=== PATIENT | male | born 1970 | race Caucasian/White ===

== ENCOUNTER 2017-03-06 20:36 | Inpatient (IN) | payer MEDICARE ==
[2017-03-06] MEDS ORDERED: ONDANSETRON 4 MG TAB.RAPDIS PO ONE (20:55)
[2017-03-06] MEDS ORDERED: NORMAL SALINE 1000 ML 1,000 ML IV ONE ×2 (20:56)
--- NOTE | 2017-03-06 21:03 | ER Document Report ---
ED Medical Screen (RME) - General Chief Complaint: High Blood Sugar Stated Complaint: HIGH BLOOD SUGAR,VOMITING Time Seen by Provider: 03/06/17 20:53 Notes: 47 year old male, history of Type I diabetes, comes to the ED for vomiting x 12 since this morning. No fevers, no hematemesis, no abnormal bowel movement. Past medical history of esophagitis as well. Patient was given 34 units of regular insulin this afternoon by . He denies alcohol, he denies any specific areas of abdominal pain. He is visiting from [place]. TRAVEL OUTSIDE OF THE U.S. IN LAST 30 DAYS: No - Related Data Allergies/Adverse Reactions: No Known Allergies Allergy (Unverified 03/06/17 20:48) Past Medical History Renal/ Medical History: Denies: Hx Peritoneal Dialysis Physical Exam - Vital signs Vitals: Temp Pulse Resp BP Pulse Ox 98.4 F 124 H 16 159/97 H 98 03/06/17 20:44 03/06/17 20:44 03/06/17 20:44 03/06/17 20:44 03/06/17 20:44 - General General appearance: Anxious In distress: Severe - patient vomited twice, diaphoretic - Cardiovascular Rhythm: Regular, Tachycardia Heart sounds: Normal auscultation, S1 appreciated, S2 appreciated Course - Re-evaluation Re-evalutation: Patient made level 2/yellow because of suspected diabetic ketoacidosis, tachycardia, vomiting, diaphoresis. - Vital Signs Vital signs: Temp Pulse Resp BP Pulse Ox 98.4 F 124 H 16 159/97 H 98 03/06/17 20:44 03/06/17 20:44 03/06/17 20:44 03/06/17 20:44 03/06/17 20:44
[2017-03-06 21:43] LABS: ABSOLUTE BASOPHILS # (AUTO) 0.2 10^3/uL (0.0-0.2); ABSOLUTE LYMPHOCYTES (AUTO) 0.7 10^3/uL (0.5-4.7); ABSOLUTE MONOCYTES (AUTO) 0.2 10^3/uL (0.1-1.4); ABSOLUTE NEUT (AUTO) 10.2 10^3/uL (1.7-8.2); BASOPHILS % (AUTO) 1.4 % (0-2); EOSINOPHILS % (AUTO) 0.1 % (0-6); LYMPHOCYTES % (AUTO) 5.9 % (13-45); MEAN CORPUSCULAR HEMOGLOBIN 30.8 pg (27.0-33.4); MEAN CORPUSCULAR HGB CONC 31.9 g/dL (32.0-36.0); MEAN CORPUSCULAR VOLUME 96 fl (80-97); MONOCYTES % (AUTO) 1.9 % (3-13); RED BLOOD COUNT 4.87 10^6/uL (4.35-5.55); RED CELL DISTRIBUTION WIDTH 15.3 % (11.5-14.0); SEGMENTED NEUTROPHILS % (AUTO) 90.7 % (42-78); WHITE BLOOD COUNT 11.2 10^3/uL (4.0-10.5)
[2017-03-06 21:45] LABS: VENOUS BLOOD BASE EXCESS -9.9 mmol/L; VENOUS BLOOD HCO3 16.4 mmol/L (20-32); VENOUS BLOOD PCO2 37.3 mmHg (35-63); VENOUS BLOOD PH 7.26 (7.30-7.42)
[2017-03-06] MEDS ORDERED: FAMOTIDINE INJ/PF 20 MG/2 ML SDV IV ONE (22:19)
--- NOTE | 2017-03-06 22:19 | ER Document Report ---
ED GI/ - General Chief Complaint: High Blood Sugar Stated Complaint: HIGH BLOOD SUGAR,VOMITING Time Seen by Provider: 03/06/17 20:53 Notes: The patient is a 47-year-old male, past medical history type 1 diabetes, gastritis, presents with 12 hours of nausea, vomiting and elevated blood sugars to 450 at home. He was given 25 units of Humalog 2 hours prior to arrival to the ER. Patient is complaining of epigastric pain, but has not vomited while in the emergency room. According to his , the patient has difficult to control blood sugars when he will become hypoglycemic overnight and will have elevated blood sugars during the day. He denies chest pain, shortness of breath , fevers, numbness, tingling, back pain, urinary symptoms or hematemesis. TRAVEL OUTSIDE OF THE U.S. IN LAST 30 DAYS: No - Related Data Allergies/Adverse Reactions: No Known Allergies Allergy (Unverified 03/06/17 20:48) Past Medical History - General Information source: Patient, Relative - Social History Smoking Status: Current Every Day Smoker Family History: Reviewed & Not Pertinent Patient has suicidal ideation: No Patient has homicidal ideation: No Renal/ Medical History: Denies: Hx Peritoneal Dialysis Review of Systems - Review of Systems Notes: REVIEW OF SYSTEMS: CONSTITUTIONAL: -fevers, -chills EENT: -eye pain, -difficulty swallowing, -nasal congestion CARDIOVASCULAR: -chest pain, -syncope. RESPIRATORY: -cough, -SOB GASTROINTESTINAL: +epigastric abdominal pain, +nausea, +vomiting, -diarrhea GENITOURINARY: -dysuria, -hematuria MUSCULOSKELETAL: -back pain, -neck pain SKIN: -rash or skin lesions. HEMATOLOGIC: -easy bruising or bleeding. LYMPHATIC: -swollen, enlarged glands. NEUROLOGICAL: -altered mental status or loss of consciousness, -headache, - neurologic symptoms PSYCHIATRIC: -anxiety, -depression. ALL OTHER SYSTEMS REVIEWED AND NEGATIVE. Physical Exam - Vital signs Vitals: Temp Pulse Resp BP Pulse Ox 98.4 F 124 H 16 159/97 H 98 03/06/17 20:44 03/06/17 20:44 03/06/17 20:44 03/06/17 20:44 03/06/17 20:44 - Notes Notes: PHYSICAL EXAMINATION: GENERAL: Mild distress. Uncomfortable. HEAD: Atraumatic, normocephalic. EYES: Pupils equal round and reactive to light, extraocular movements intact, sclera anicteric, conjunctiva are normal. ENT: nares patent, oropharynx clear without exudates. Moist mucous membranes. NECK: Normal range of motion, supple without lymphadenopathy LUNGS: Breath sounds clear to auscultation bilaterally and equal. No wheezes rales or rhonchi. HEART: Tachycardia, regular rhythm ABDOMEN: Soft, mild epigastric tenderness, normoactive bowel sounds. No guarding, no rebound. No masses appreciated. EXTREMITIES: Normal range of motion, no pitting or edema. No cyanosis. NEUROLOGICAL: Cranial nerves grossly intact. Normal speech. Normal sensory and motor exams. PSYCH: Normal mood, normal affect. SKIN: Warm, Dry, normal turgor, no rashes or lesions noted. Course - Re-evaluation Re-evalutation: Patient with evidence of DKA on labs, including elevated anion gap, acidosis on VBG and ketones in urine. No history of toxic alcohol ingestion or any other medication ingestion to explain elevated anion gap. Patient started on insulin drip. Patient still tachycardic. He only with epigastric pain, which she says is similar to his gastritis. His lipase and LFTs are all normal. Patient's primary care physician is in [place]. He requires admission for further evaluation and treatment of his DKA. 03/07/17 03:[address] Jarrell (Hospitalist) and will admit patient to [facility]. - Vital Signs Vital signs: Temp Pulse Resp BP Pulse Ox 98.4 F 124 H 18 144/88 H 100 03/06/17 20:44 03/06/17 20:44 03/07/17 03:01 03/07/17 03:01 03/07/17 03:01 - Laboratory Result Diagrams: 03/06/17 21:25 03/07/17 02:34 Laboratory results interpreted by me: 03/06/17 03/06/17 03/06/17 20:51 21:25 21:25 WBC 11.2 H MCHC 31.9 L RDW 15.3 H Seg Neutrophils % 90.7 H Lymphocytes % 5.9 L Monocytes % 1.9 L Absolute Neutrophils 10.2 H VBG pH 7.26 L VBG HCO3 16.4 L Chloride Carbon Dioxide Anion Gap Glucose POC Glucose 310 H Alkaline Phosphatase Lipase Urine Protein Urine Glucose (UA) Urine Ketones Urine Blood 03/06/17 03/06/17 03/06/17 22:00 22:00 22:10 WBC MCHC RDW Seg Neutrophils % Lymphocytes % Monocytes % Absolute Neutrophils VBG pH VBG HCO3 Chloride Carbon Dioxide 14 L Anion Gap 23 H Glucose 323 H POC Glucose Alkaline Phosphatase 148 H Lipase < 10.0 L Urine Protein 100 H Urine Glucose (UA) >=500 H Urine Ketones 80 H Urine Blood SMALL H 03/07/17 03/07/17 03/07/17 01:16 02:23 02:34 WBC MCHC RDW Seg Neutrophils % Lymphocytes % Monocytes % Absolute Neutrophils VBG pH VBG HCO3 Chloride 113 H Carbon Dioxide 11 L Anion Gap 20 H Glucose 216 H POC Glucose 300 H 260 H Alkaline Phosphatase Lipase Urine Protein Urine Glucose (UA) Urine Ketones Urine Blood - EKG Interpretation by Fl EKG shows normal: Sinus rhythm, [place], Intervals, QRS Complexes, ST-T Waves Rate: Tachycardia Discharge - Discharge Clinical Impression: DKA (diabetic ketoacidoses) Qualifiers: Diabetes mellitus type: type 1 Diabetes mellitus complication detail: without coma Qualified Code(s): E10.10 - Type 1 diabetes mellitus with ketoacidosis without coma Condition: Serious Disposition: ADMITTED INPATIENT [facility] Unit Admitted: [facility]
[2017-03-06 22:27] LABS: ALANINE AMINOTRANSFERASE 43 U/L (21-72); ALKALINE PHOSPHATASE 148 U/L (38-126); ASPARTATE AMINO TRANSFERASE 29 U/L (17-59); BILIRUBIN,DIRECT 0.4 mg/dL (0.0-0.4); BLOOD UREA NITROGEN 19 mg/dL (7-20); CREATININE RESULT 0.75 mg/dL (0.52-1.25); GLUCOSE 323 mg/dL (75-110); TOTAL PROTEIN 7.8 g/dL (6.3-8.2)
[2017-03-06 22:32] LABS: APPEARANCE,URINE CLEAR; BILIRUBIN,URINE NEGATIVE (NEGATIVE); GLUCOSE, URINE >=500 mg/dL (NEGATIVE); KETONES,URINE 80 mg/dL (NEGATIVE); LEUKOCYTE ESTERASE,URINE NEGATIVE (NEGATIVE); NITRITE,URINE NEGATIVE (NEGATIVE); PROTEIN,URINE 100 mg/dL (NEGATIVE); URINE SPECIFIC GRAVITY 1.026; UROBILINOGEN,URINE NEGATIVE mg/dL (<2.0)
[2017-03-06 22:36] LABS: CARBON DIOXIDE 14 mmol/L (22-30); CHLORIDE 104 mmol/L (98-107); POTASSIUM 4.9 mmol/L (3.6-5.0); SODIUM 142.6 mmol/L (137-145)
[2017-03-06 22:46] LABS: ANION GAP 23 (5-19)
[2017-03-06] MEDS ORDERED: GLUCAGON,HUMAN RECOMB 1 MG INJ IM PRN (23:03)
[2017-03-06] MEDS ORDERED: NORMAL SALINE 100 ML with INSULIN REGULAR, HUMAN 100 UNIT IV PRN ×2 (23:03)
[2017-03-06] MEDS ORDERED: DEXTROSE 40% GEL 15 GM TUBE PO PRN ×2 (23:03)
[2017-03-06] MEDS ORDERED: DEXTROSE 50%-WATER 25 GM/50 ML DISP.SYRIN IV PRN ×2 (23:03)
[2017-03-06] MEDS ORDERED: METOCLOPRAMIDE HCL INJ/PF 10 MG/2 ML SDV IV ONE (23:41)
[2017-03-06] MEDS ORDERED: INSULIN REG, HUMAN 100 UNIT/ML 3 ML VIAL (PYX) IV ONE (23:52)
[2017-03-07] MEDS ORDERED: INSULIN REG, HUMAN 100 UNIT/ML 3 ML VIAL (PYX) ONE (00:01)
[2017-03-07 02:52] LABS: BLOOD UREA NITROGEN 18 mg/dL (7-20); CALCIUM 9.6 mg/dL (8.4-10.2); CARBON DIOXIDE 11 mmol/L (22-30); CHLORIDE 113 mmol/L (98-107); GLUCOSE 216 mg/dL (75-110); POTASSIUM 4.4 mmol/L (3.6-5.0); SODIUM 143.8 mmol/L (137-145)
[2017-03-07 02:57] LABS: ANION GAP 20 (5-19)
[2017-03-07] MEDS ORDERED: DEXTROSE 5%-1/2 NORMAL SALINE 1,000 ML IV ONE (02:57)
[2017-03-07] MEDS ORDERED: GLUCAGON,HUMAN RECOMB 1 MG INJ IM PRN (03:16)
[2017-03-07] MEDS ORDERED: POTASSI CL 20 MEQ/D5-1/2NS 1L 1,000 ML IV PRN ×2 (03:16)
[2017-03-07] MEDS ORDERED: ONDANSETRON HCL INJ/PF 4 MG/2 ML SDV IV PRN ×3 (03:16→10:04)
[2017-03-07] MEDS ORDERED: ACETAMINOPHEN 325 MG TABLET PO PRN (03:16)
[2017-03-07] MEDS ORDERED: DEXTROSE 50%-WATER 25 GM/50 ML DISP.SYRIN IV PRN ×2 (03:16)
[2017-03-07] MEDS ORDERED: DEXTROSE 40% GEL 15 GM TUBE PO PRN ×2 (03:16)
[2017-03-07] MEDS ORDERED: IPRATROPIUM/ALBUTEROL 0.5-2.5 MG/3 ML AMPUL NEB PRN (03:16)
--- NOTE | 2017-03-07 06:03 | PDOC H&P ---
History of Present Illness Admission Date/PCP: 03/07/17 03:21 Patient complains of: Nausea and vomiting History of Present Illness: HEATHER CORLEY is a 47 year old male with a past medical history of migraine headache, gastritis, peripheral neuropathy and type 1 diabetes with recurrent Diabetic ketoacidosis, who is from [facility]. He states glucose has been difficult to control associated with nausea and vomiting 12 prompting him to seek evaluation in the emergency room where he was found to have diabetic ketoacidosis. He is referred to the hospital for admission. Past Medical History Neurological Medical History: Reports: Migraine GI Medical History: Reports: Other - Gastritis Psychiatric Medical History: Reports: Tobacco Dependency Denies: Alcohol Dependency Social History Information Source: Patient Lives with: Spouse/Significant other Smoking Status: Current Every Day Smoker Drugs: Marijuana - Advance Directive Resuscitation Status: Full Code Family History Family History: None Parental Family History Reviewed: Yes Children Family History Reviewed: Yes Sibling(s) Family History Reviewed.: Yes Medication/Allergy Allergies/Adverse Reactions: No Known Allergies Allergy (Unverified 03/06/17 20:48) Review of Systems Constitutional: ABSENT: chills, fever(s), headache(s), weight gain, weight loss Eyes: ABSENT: visual disturbances Ears: ABSENT: hearing changes Cardiovascular: ABSENT: chest pain, dyspnea on exertion, edema, orthropnea, palpitations Respiratory: ABSENT: cough, hemoptysis Gastrointestinal: ABSENT: abdominal pain, constipation, diarrhea, hematemesis, hematochezia, nausea, vomiting Genitourinary: ABSENT: dysuria, hematuria Musculoskeletal: ABSENT: joint swelling Integumentary: ABSENT: rash, wounds Neurological: ABSENT: abnormal gait, abnormal speech, confusion, dizziness, focal weakness, syncope Psychiatric: ABSENT: anxiety, depression, homidical ideation, suicidal ideation Endocrine: ABSENT: cold intolerance, heat intolerance, polydipsia, polyuria Hematologic/Lymphatic: ABSENT: easy bleeding, easy bruising Physical Exam Vital Signs: Temp Pulse Resp BP Pulse Ox 98.4 F 124 H 18 144/88 H 100 03/06/17 20:44 03/06/17 20:44 03/07/17 03:01 03/07/17 03:01 03/07/17 03:01 General appearance: PRESENT: cooperative, disheveled, mild distress, thin Head exam: PRESENT: atraumatic, normocephalic Eye exam: PRESENT: conjunctiva pink, EOMI, PERRLA. ABSENT: scleral icterus Ear exam: PRESENT: normal external ear exam Mouth exam: PRESENT: dry mucosa, tongue midline Neck exam: ABSENT: carotid bruit, JVD, lymphadenopathy, thyromegaly Respiratory exam: PRESENT: clear to auscultation chris. ABSENT: rales, rhonchi, wheezes Cardiovascular exam: PRESENT: RRR. ABSENT: diastolic murmur, rubs, systolic murmur Pulses: PRESENT: normal dorsalis pedis pul Vascular exam: PRESENT: normal capillary refill GI/Abdominal exam: PRESENT: normal bowel sounds, soft. ABSENT: distended, guarding, mass, organolmegaly, rebound, tenderness Extremities exam: PRESENT: full ROM. ABSENT: calf tenderness, clubbing, pedal edema Neurological exam: PRESENT: alert, awake, oriented to person, oriented to place , oriented to time, oriented to situation, CN II-XII grossly intact. ABSENT: motor sensory deficit Psychiatric exam: PRESENT: appropriate affect, normal mood. ABSENT: homicidal ideation, suicidal ideation Skin exam: PRESENT: abrasion - Lateral left ankle abrasion, other - Numerous insect bites throughout Assessment & Plan - Diagnosis (1) DKA (diabetic ketoacidoses) Qualifiers: Diabetes mellitus type: type 1 Diabetes mellitus complication detail: without coma Qualified Code(s): E10.10 - Type 1 diabetes mellitus with ketoacidosis without coma Is this a current diagnosis for this admission?: YesPlan: Diabetic ketoacidosis patient has had some degree of polyuria polydipsia with nausea and uncontrolled hyperglycemia with supporting labs. Patient will receive IV fluids IV insulin serial chemistries every 6 hours for evaluation for electrolyte repletion. Continued evaluation for underlying cause if not found Patient will require diabetic education and consideration of mental health evaluation. (2) Tobacco abuse Is this a current diagnosis for this admission?: YesPlan: Tobacco Dependence patient received tobacco cessation counseling and offered nicotine replacement options - Time Time Spent: 50 to 70 Minutes - Inpatient Certification Medical Necessity: Need Close Monitoring Due to Risk of Patient Decompensation
[2017-03-07 06:43] LABS: URINE BARBITURATES SCREEN NEGATIVE; URINE METHADONE SCREEN NEGATIVE; URINE OPIATES LOW NEGATIVE; URINE PHENCYCLIDINE SCREEN NEGATIVE
[2017-03-07 06:57] LABS: BLOOD UREA NITROGEN 19 mg/dL (7-20); CALCIUM 9.9 mg/dL (8.4-10.2); CHLORIDE 111 mmol/L (98-107); CREATININE RESULT 0.69 mg/dL (0.52-1.25); GLUCOSE 90 mg/dL (75-110); POTASSIUM 4.4 mmol/L (3.6-5.0); SODIUM 145.4 mmol/L (137-145)
[2017-03-07 07:09] LABS: ANION GAP 14 (5-19)
[2017-03-07 07:10] LABS: CARBON DIOXIDE 20 mmol/L (22-30)
[2017-03-07] MEDS: HEPARIN SOD (PORCINE) 5,000 UNIT/ML 1 ML SYRINGE SUBCUT SCH ×3 (08:00→21:52)
[2017-03-07] MEDS ORDERED: NORMAL SALINE 100 ML with INSULIN REGULAR, HUMAN 100 UNIT IV PRN ×2 (09:44)
[2017-03-07] MEDS ORDERED: DIPHENHYDRAMINE HCL 50 MG/ML VIAL IV ONE (09:46)
[2017-03-07] MEDS ORDERED: NORMAL SALINE 1000 ML 1,000 ML IV ONE (09:50)
[2017-03-07] MEDS ORDERED: METOCLOPRAMIDE HCL ORAL SOLN 10 MG/10 ML UDCUP PO ONE (10:00)
[2017-03-07] MEDS ORDERED: LIDOCAINE 2% VISCOUS SOLN 20 ML UDCUP PO ONE (10:00)
[2017-03-07] MEDS ORDERED: KETOROLAC TROMETHAMINE INJ/PF 30 MG/1 ML SDV IV ONE (10:00)
[2017-03-07] MEDS ORDERED: MAG HYDROX/AL HYDROX/SIMETH SUSP 30 ML UDCUP PO ONE (10:00)
[2017-03-07] MEDS ORDERED: INSULIN GLARGINE,HUM.REC.ANLOG 1,000 UNIT/10 ML UNIT SUBCUT SCH (10:00)
[2017-03-07] MEDS ORDERED: LANSOPRAZOLE 30 MG TAB.RAP.DR PO ONE (10:00)
--- NOTE | 2017-03-07 10:46 | EKG REPORT ---
SEVERITY:- BORDERLINE ECG - SINUS TACHYCARDIA PROBABLE LEFT ATRIAL ABNORMALITY : Confirmed by: Cindy Alvarado MD 07-Mar-2017 10:45:36
[2017-03-07 11:12] LABS: ANION GAP 19 (5-19); BLOOD UREA NITROGEN 17 mg/dL (7-20); CALCIUM 9.4 mg/dL (8.4-10.2); CARBON DIOXIDE 15 mmol/L (22-30); CHLORIDE 107 mmol/L (98-107); CREATININE RESULT 0.59 mg/dL (0.52-1.25); GLUCOSE 271 mg/dL (75-110); POTASSIUM 4.9 mmol/L (3.6-5.0); SODIUM 140.6 mmol/L (137-145)
[2017-03-07] MEDS: SERTRALINE HCL 50 MG TABLET PO SCH (12:29)
[2017-03-07] MEDS: LISINOPRIL 5 MG TABLET PO SCH (12:32)
[2017-03-07] MEDS ORDERED: HYDRALAZINE HCL INJ/PF 20 MG/1 ML SDV IV PRN (13:59)
[2017-03-07] MEDS ORDERED: LISINOPRIL 5 MG TABLET PO ONE (13:59)
[2017-03-07] MEDS: NORMAL SALINE 1000 ML 1,000 ML IV PRN ×2 (14:31→18:22)
[2017-03-07] MEDS: PREGABALIN 75 MG CAPSULE PO SCH ×2 (14:31→21:52)
[2017-03-07] MEDS: ONDANSETRON HCL INJ/PF 4 MG/2 ML SDV IV PRN (15:17)
[2017-03-07 15:38] LABS: ANION GAP 13 (5-19); BLOOD UREA NITROGEN 19 mg/dL (7-20); CALCIUM 9.4 mg/dL (8.4-10.2); CARBON DIOXIDE 19 mmol/L (22-30); CHLORIDE 107 mmol/L (98-107); CREATININE RESULT 0.67 mg/dL (0.52-1.25); GLUCOSE 287 mg/dL (75-110); POTASSIUM 4.4 mmol/L (3.6-5.0); SODIUM 139.3 mmol/L (137-145)
[2017-03-07] MEDS: INSULIN LISPRO 100 UNIT/ML 3 ML VIAL SUBCUT PRN (16:28)
[2017-03-07] MEDS: INSULIN GLARGINE,HUM.REC.ANLOG 1,000 UNIT/10 ML UNIT SUBCUT SCH (21:41)
[2017-03-08 04:59] LABS: ABSOLUTE BASOPHILS # (AUTO) 0.1 10^3/uL (0.0-0.2); ABSOLUTE EOSINOPHILS # (AUTO) 0.1 10^3/uL (0.0-0.6); ABSOLUTE LYMPHOCYTES (AUTO) 1.7 10^3/uL (0.5-4.7); ABSOLUTE MONOCYTES (AUTO) 0.5 10^3/uL (0.1-1.4); ABSOLUTE NEUT (AUTO) 6.2 10^3/uL (1.7-8.2); BASOPHILS % (AUTO) 1.1 % (0-2); EOSINOPHILS % (AUTO) 0.8 % (0-6); HEMATOCRIT 35.3 % (37.9-51.0); HGB HCT DIFFERENCE -0.2; LYMPHOCYTES % (AUTO) 19.5 % (13-45); MEAN CORPUSCULAR HEMOGLOBIN 31.4 pg (27.0-33.4); MEAN CORPUSCULAR VOLUME 95 fl (80-97); MONOCYTES % (AUTO) 6.3 % (3-13); RED BLOOD COUNT 3.71 10^6/uL (4.35-5.55); RED CELL DISTRIBUTION WIDTH 15.1 % (11.5-14.0); SEGMENTED NEUTROPHILS % (AUTO) 72.3 % (42-78); WHITE BLOOD COUNT 8.5 10^3/uL (4.0-10.5)
[2017-03-08 05:01] LABS: HEMOGLOBIN 11.7 g/dL (13.5-17.0)
[2017-03-08] MEDS ORDERED: LANSOPRAZOLE 30 MG TAB.RAP.DR PO SCH (06:00)
[2017-03-08] MEDS: PREGABALIN 75 MG CAPSULE PO SCH ×2 (06:14→13:31)
[2017-03-08] MEDS: HEPARIN SOD (PORCINE) 5,000 UNIT/ML 1 ML SYRINGE SUBCUT SCH ×2 (06:14→13:27)
[2017-03-08] MEDS: SERTRALINE HCL 50 MG TABLET PO SCH (09:08)
[2017-03-08] MEDS: INSULIN GLARGINE,HUM.REC.ANLOG 1,000 UNIT/10 ML UNIT SUBCUT SCH (09:08)
[2017-03-08] MEDS: ONDANSETRON HCL INJ/PF 4 MG/2 ML SDV IV PRN (09:08)
[2017-03-08] MEDS: NORMAL SALINE 1000 ML 1,000 ML IV PRN (09:09)
[2017-03-08] MEDS: LISINOPRIL 5 MG TABLET PO SCH (09:12)
[2017-03-08] MEDS ORDERED: METOCLOPRAMIDE HCL INJ/PF 10 MG/2 ML SDV IV ONE (09:26)
[2017-03-08] MEDS ORDERED: KETOROLAC TROMETHAMINE INJ/PF 30 MG/1 ML SDV IV ONE (09:26)
[2017-03-08] MEDS ORDERED: PANTOPRAZOLE SODIUM 40 MG VIAL IV ONE (09:26)
[2017-03-08] MEDS ORDERED: DIPHENHYDRAMINE HCL 50 MG/ML VIAL IV ONE (09:27)
[2017-03-08 11:38] VITALS: BP 133/83
[2017-03-08] MEDS: INSULIN LISPRO 100 UNIT/ML 3 ML VIAL SUBCUT PRN (12:18)
[2017-03-08] MEDS ORDERED: METOCLOPRAMIDE HCL INJ/PF 10 MG/2 ML SDV ONE (13:36)
[2017-03-08] MEDS ORDERED: ONDANSETRON HCL INJ/PF 4 MG/2 ML SDV ONE (13:36)
--- NOTE | 2017-03-08 19:54 | PDOC PROGRESS REPORT ---
Subjective Progress Note for:: 03/07/17 Subjective:: Patient has headache and nausea. Patient denies chest pain, shortness of breath, abdominal pain, rash, diarrhea. Physical Exam Vital Signs: Temp Pulse Resp BP Pulse Ox 98.4 F 124 H 17 141/84 H 100 03/06/17 20:44 03/06/17 20:44 03/07/17 06:01 03/07/17 06:01 03/07/17 06:01 Exam: GENERAL: No acute distress HEENT: Conjunctiva clear, nonicteric, moist mucous membranes, no JVD, midline trachea RESPIRATORY: Clear to auscultation bilaterally, no wheezes, no rhonchi CARDIAC: Regular rate and rhythm, no murmurs/gallops/rubs ABDOMEN: Soft, nondistended, nontender, positive bowel sounds, no rebound, no guarding EXTREMETIES: c/c/e NEUROLOGIC: Alert, oriented to person/place/time, CN's grossly intact, no focal deficits SKIN: No rash, lesion PSYCH: Normal mood, normal affect Results Laboratory Results: 03/07/17 06:22 03/07/17 06:22 Sodium 145.4 H Potassium 4.4 Chloride 111 H Carbon Dioxide 20 L Anion Gap 14 BUN 19 Creatinine 0.69 Est GFR ( Amer) > 60 Est GFR (Non-Af Amer) > 60 Glucose 90 Calcium 9.9 Assessment & Plan - Diagnosis (1) DKA (diabetic ketoacidoses) Qualifiers: Diabetes mellitus type: type 1 Diabetes mellitus complication detail: without coma Qualified Code(s): E10.10 - Type 1 diabetes mellitus with ketoacidosis without coma Is this a current diagnosis for this admission?: YesPlan: Continue ggt and transition as able. Patient takes lantus and ssi at home. Poorly controlled. (2) HTN (hypertension) Is this a current diagnosis for this admission?: YesPlan: resume lisinopril (3) Tobacco abuse Is this a current diagnosis for this admission?: Yes - Time Time Spent with patient: 25-34 minutes Medications reviewed and adjusted accordingly: Yes Anticipated discharge: Home Within: within 48 hours
--- NOTE | 2017-03-08 20:00 | PDOC DISCHARGE SUMMARY ---
General - Admit/Disc Date/PCP Admission Date/Primary Care Provider: 03/07/17 19:36 Discharge Date: 03/08/17 - Discharge Diagnosis (1) DKA (diabetic ketoacidoses) Is this a current diagnosis for this admission?: Yes (2) HTN (hypertension) Is this a current diagnosis for this admission?: Yes (3) Tobacco abuse Is this a current diagnosis for this admission?: Yes (4) Gastroparesis due to DM Is this a current diagnosis for this admission?: Yes - Additional Information Resuscitation Status: Full Code Discharge Diet: Diabetic Discharge Activity: Activity As Tolerated Home Medications: Insulin Glargine,Hum.rec.anlog [Lantus Insulin 100 Unit/1 ml 10 ml] 50 unit SUBCUT QAM 03/07/17 Insulin Glargine,Hum.rec.anlog [Lantus Insulin 100 Unit/1 ml 10 ml] 55 unit SUBCUT QHS 03/07/17 Insulin Lispro [Humalog Insulin (Lispro) 100 unit/mL] 0 unit SUBCUT .SLD SCALE 03/07/17 Lisinopril [Prinivil] 5 mg PO DAILY 03/07/17 Pantoprazole Sodium [Protonix] 40 mg PO QAM 03/07/17 Pregabalin [Lyrica 75 mg Capsule] 75 mg PO Q8 03/07/17 Sertraline HCl [Zoloft] 100 mg PO DAILY 03/07/17 Metoclopramide HCl [Reglan 10 mg Tablet] 10 mg PO ACHS #120 tablet 03/08/17 Ondansetron [Zofran Odt 4 mg Tablet] 1 - 2 tab PO Q4HP PRN #20 tab.rapdis History of Present Illness History of Present Illness: see H+P for full hpi Hospital Course Hospital Course: Patient was transitioned off insulin ggt with success. Patient was rehydrated. Patient's nausea was treated with zofran and reglan. Discharged in stable condition. Physical Exam Vital Signs: Temp Pulse Resp BP Pulse Ox 98.0 F 85 15 133/83 H 100 03/08/17 11:19 03/08/17 11:19 03/08/17 11:19 03/08/17 11:19 03/08/17 11:19 Intake & Output 03/07/17 03/08/17 03/09/17 06:59 06:59 06:59 Intake Total 3230 Balance 3230 Weight 66.2 kg Exam: GENERAL: No acute distress HEENT: Conjunctiva clear, nonicteric, moist mucous membranes, no JVD, midline trachea RESPIRATORY: Clear to auscultation bilaterally, no wheezes, no rhonchi CARDIAC: Regular rate and rhythm, no murmurs/gallops/rubs ABDOMEN: Soft, nondistended, nontender, positive bowel sounds, no rebound, no guarding EXTREMETIES: c/c/e NEUROLOGIC: Alert, oriented to person/place/time, CN's grossly intact, no focal deficits SKIN: No rash, lesion PSYCH: Normal mood, normal affect Results Laboratory Results: 03/08/17 04:17 03/08/17 04:17 WBC 8.5 RBC 3.71 L Hgb 11.7 L D Hct 35.3 L MCV 95 MCH 31.4 MCHC 33.0 RDW 15.1 H Plt Count 276 Seg Neutrophils % 72.3 Lymphocytes % 19.5 Monocytes % 6.3 Eosinophils % 0.8 Basophils % 1.1 Absolute Neutrophils 6.2 Absolute Lymphocytes 1.7 Absolute Monocytes 0.5 Absolute Eosinophils 0.1 Absolute Basophils 0.1 Qualifiers PATEINT BEING DISCHARGED WITH ANY OF THE FOLLOWING DIAGNOSIS?: No Plan Time Spent: Less than 30 Minutes
== END 2017-03-08 15:38 | disposition home or self-care (01) | DRG 639 ==
LOC: ER 20:36 → EH 03-07 03:21 → UNDOADMIN 03-07 03:21 → 5 03-07 12:47 → EH 03-07 12:47 → 5 03-07 19:36
PROVIDERS: ADMIT Internal Medicine; ATTEND Internal Medicine
DX: E10.10 Type 1 diabetes mellitus with ketoacidosis without coma (principal); K31.84 Gastroparesis; I10 Essential (primary) hypertension; Z79.4 Long term (current) use of insulin; F17.200 Nicotine dependence, unspecified, uncomplicated
CPT/HCPCS: 36415; 80048; 80053; 80307; 81001; 82803; 82962; 83036; 83690; 84100; 84443; 84484; 85025; 93005; 93010; 96361; 96374; 96375; 99285; J1200; J1644; J1815; J1885; J2405; J2765; J3480; J3490; J7030; S0028; S0119; S0164

== ENCOUNTER 2017-03-10 06:23 | Inpatient (IN) | payer MEDICARE ==
[2017-03-10] MEDS ORDERED: NORMAL SALINE 1000 ML 1,000 ML IV ONE ×2 (06:33→07:36)
[2017-03-10] MEDS ORDERED: ONDANSETRON HCL INJ/PF 4 MG/2 ML SDV IV ONE (06:33)
--- NOTE | 2017-03-10 06:38 | ER Document Report ---
ED GI/ - General Mode of Arrival: Ambulatory Information source: Relative Cannot obtain history due to: Other - patient's medical condition TRAVEL OUTSIDE OF THE [place] IN LAST 30 DAYS: No - HPI Patient complains to provider of: Vomiting Associated symptoms: Other - elevated BGL Similar symptoms previously: Yes Recently seen / treated by doctor: Yes <HARPER ANN - Last Filed: 03/10/17 08:29> <TALON DARBY - Last Filed: 03/10/17 11:37> - General Chief Complaint: Vomiting Stated Complaint: VOMITING Time Seen by Provider: 03/10/17 06:32 Notes: Patient is an insulin dependent 47 year old male that presents to the emergency department today with complaints of an elevated BGL at home, in the 320s with concerns of being in DKA.Family member at bedside states the patient was seen four days ago and admitted for DKA. Family member states the patient was vomiting upon discharge 3 days ago but was told that Zofran would take care of this. Patient's sugars have been uncontrolled since discharge with persistent vomiting. Patient has a history of gastric ulcers "years ago". Family member states that the patient's vomit has been yellow and intermittently a dark color. Patient has been complaining of "pain from head to toe" according to the family member at bedside. Family member states when the patient's sugar are this high he is difficult to understand which is consistent with his presentation today. (HARPER ANN) - Related Data Allergies/Adverse Reactions: No Known Allergies Allergy (Verified 03/10/17 06:28) Past Medical History - General Information source: Relative, [facility] Records - Social History Smoking Status: Current Every Day Smoker Cigarette use (# per day): Yes Frequency of alcohol use: None Drug Abuse: None Lives with: Family Family History: None Neurological Medical History: Reports: Hx Migraine Endocrine Medical History: Reports: Other - IDDM Surgical Hx: Negative <HARPER ANN - Last Filed: 03/10/17 08:29> Review of Systems - Review of Systems -: Yes ROS unobtainable due to patient's medical condition - given by family member at bedside Constitutional: See HPI, Other - Elevated BGL at home 320s <HARPER ANN - Last Filed: 03/10/17 08:29> Physical Exam <HARPER ANN - Last Filed: 03/10/17 08:29> <TALON DARBY - Last Filed: 03/10/17 11:37> - Vital signs Vitals: Temp Pulse Resp BP Pulse Ox 97.6 F 95 18 180/92 H 99 03/10/17 06:28 03/10/17 06:28 03/10/17 06:28 03/10/17 06:28 03/10/17 06:28 - Notes Notes: Physical Exam: General: Appears chronically ill. In mild distress. HEENT: Normocephalic. Atraumatic. Oropharynx clear. Dry mucous membranes. Neck: Supple. Non-tender. Respiratory: Tachypneic, clear breath sounds bilaterally. Cardiovascular: Regular rate and rhythm. Abdominal: Normal Inspection. Non-tender. No distension. Normal Bowel Sounds. Back: Non-tender. No deformity or step off. Extremities: Moves all four extremities. Upper extremities: Normal inspection. Normal ROM. Lower extremities: Normal inspection. No edema. Normal ROM. Neurological: Confused. Psychological: unable to assess Skin: Warm. Dry. Normal color. (HARPER ANN) Course - Laboratory Result Diagrams: 03/10/17 06:45 03/10/17 06:45 <HARPER ANN - Last Filed: 03/10/17 08:29> - Laboratory Result Diagrams: 03/10/17 06:45 03/10/17 06:45 <TALON DARBY - Last Filed: 03/10/17 11:37> - Re-evaluation Re-evalutation: 03/10/17 07:36 Is a 47-year-old male who presents with vomiting. Patient with a history of diabetes who was discharged with similar symptoms. Patient has not been able to keep anything down her significant other. 03/10/17 09:37 No acute findings on ultrasound. No surgical abdomen. Patient will be admitted for fluid rehydration, management of nausea vomiting, and treatment of DKA. Admitted with plan. Stable time of admission. (TALON DARBY) - Vital Signs Vital signs: Temp Pulse Resp BP Pulse Ox 97.6 F 95 14 182/109 H 99 03/10/17 06:28 03/10/17 06:28 03/10/17 11:01 03/10/17 11:00 03/10/17 11:01 - Laboratory Laboratory results interpreted by me: 03/10/17 03/10/17 03/10/17 06:45 06:45 06:45 RDW 14.6 H VBG pH 7.27 L VBG pCO2 32.3 L VBG HCO3 14.4 L Sodium 133.8 L Chloride 97 L Carbon Dioxide 14 L Anion Gap 23 H Glucose 370 H POC Glucose Total Bilirubin 1.9 H Alkaline Phosphatase 149 H Urine Protein Urine Glucose (UA) Urine Ketones 03/10/17 03/10/17 07:55 08:43 RDW VBG pH VBG pCO2 VBG HCO3 Sodium Chloride Carbon Dioxide Anion Gap Glucose POC Glucose 282 H Total Bilirubin Alkaline Phosphatase Urine Protein 30 H Urine Glucose (UA) >=500 H Urine Ketones 80 H Discharge <HARPER ANN - Last Filed: 03/10/17 08:29> - Discharge Admitting Provider: Hospitalist [facility] Unit Admitted: [facility] <TALON DARBY - Last Filed: 03/10/17 11:37> - Discharge Clinical Impression: DKA (diabetic ketoacidoses) Qualifiers: Diabetes mellitus type: type 1 Diabetes mellitus complication detail: without coma Qualified Code(s): E10.10 - Type 1 diabetes mellitus with ketoacidosis without coma Vomiting Qualifiers: Vomiting type: unspecified Vomiting Intractability: intractable Nausea presence : with nausea Qualified Code(s): R11.2 - Nausea with vomiting, unspecified Condition: Stable Disposition: ADMITTED INPATIENT Scribe Attestation: 03/10/17 11:37 I personally performed the services described in the documentation, reviewed and edited the documentation which was dictated to the scribe in my presence, and it accurately records my words and actions. (TALON DARBY) Scribe Documentation - Scribe Written by Klever:: Klever Campbell, 03/10/2017 0823 acting as scribe for :: Mary <HARPER ANN - Last Filed: 03/10/17 08:29>
[2017-03-10 07:01] LABS: ABSOLUTE BASOPHILS # (AUTO) 0.1 10^3/uL (0.0-0.2); ABSOLUTE EOSINOPHILS # (AUTO) 0.1 10^3/uL (0.0-0.6); ABSOLUTE LYMPHOCYTES (AUTO) 1.1 10^3/uL (0.5-4.7); ABSOLUTE MONOCYTES (AUTO) 0.3 10^3/uL (0.1-1.4); ABSOLUTE NEUT (AUTO) 4.4 10^3/uL (1.7-8.2); BASOPHILS % (AUTO) 1.3 % (0-2); EOSINOPHILS % (AUTO) 1.4 % (0-6); HEMATOCRIT 42.6 % (37.9-51.0); HGB HCT DIFFERENCE -0.6; LYMPHOCYTES % (AUTO) 18.1 % (13-45); MEAN CORPUSCULAR HEMOGLOBIN 31.2 pg (27.0-33.4); MEAN CORPUSCULAR HGB CONC 32.9 g/dL (32.0-36.0); MEAN CORPUSCULAR VOLUME 95 fl (80-97); MONOCYTES % (AUTO) 4.4 % (3-13); RED BLOOD COUNT 4.48 10^6/uL (4.35-5.55); RED CELL DISTRIBUTION WIDTH 14.6 % (11.5-14.0); SEGMENTED NEUTROPHILS % (AUTO) 74.8 % (42-78); WHITE BLOOD COUNT 5.9 10^3/uL (4.0-10.5)
[2017-03-10] MEDS ORDERED: PANTOPRAZOLE SODIUM 40 MG VIAL IV ONE (07:06)
[2017-03-10 07:08] LABS: VENOUS BLOOD BASE EXCESS -11.2 mmol/L; VENOUS BLOOD HCO3 14.4 mmol/L (20-32); VENOUS BLOOD PCO2 32.3 mmHg (35-63); VENOUS BLOOD PH 7.27 (7.30-7.42)
--- NOTE | 2017-03-10 07:10 | RADIOLOGY REPORT (SQ) ---
EXAM DESCRIPTION: CHEST SINGLE VIEW COMPLETED DATE/TIME: 03/10/2017 6:56 am REASON FOR STUDY: vomiting COMPARISON: None. EXAM PARAMETERS: NUMBER OF VIEWS: One view. TECHNIQUE: Single frontal radiographic view of the chest acquired. RADIATION DOSE: NA LIMITATIONS: None. FINDINGS: LUNGS AND PLEURA: No consolidation, pneumothorax or pleural effusion. MEDIASTINUM AND HILAR STRUCTURES: No masses. Contour normal. HEART AND VASCULAR STRUCTURES: Heart normal in size. No overt vascular congestion. BONES: No acute findings. HARDWARE: None in the chest. IMPRESSION: No acute radiographic finding in the chest. TECHNICAL DOCUMENTATION: JOB ID: [id number]
[2017-03-10 07:15] LABS: PROTHROMBIN TIME 12.1 SEC (11.4-15.4)
[2017-03-10 07:20] LABS: ALANINE AMINOTRANSFERASE 43 U/L (21-72); ALBUMIN 4.6 g/dL (3.5-5.0); ALKALINE PHOSPHATASE 149 U/L (38-126); ASPARTATE AMINO TRANSFERASE 26 U/L (17-59); BILIRUBIN,DIRECT 0.4 mg/dL (0.0-0.4); BILIRUBIN,TOTAL 1.9 mg/dL (0.2-1.3); BLOOD UREA NITROGEN 14 mg/dL (7-20); CALCIUM 9.6 mg/dL (8.4-10.2); CARBON DIOXIDE 14 mmol/L (22-30); CHLORIDE 97 mmol/L (98-107); CREATININE RESULT 0.67 mg/dL (0.52-1.25); GLUCOSE 370 mg/dL (75-110); POTASSIUM 4.8 mmol/L (3.6-5.0); TOTAL PROTEIN 7.3 g/dL (6.3-8.2)
[2017-03-10 07:27] LABS: SODIUM 133.8 mmol/L (137-145)
[2017-03-10 07:34] LABS: ANION GAP 23 (5-19)
[2017-03-10 08:24] LABS: APPEARANCE,URINE CLEAR; BILIRUBIN,URINE NEGATIVE (NEGATIVE); GLUCOSE, URINE >=500 mg/dL (NEGATIVE); KETONES,URINE 80 mg/dL (NEGATIVE); LEUKOCYTE ESTERASE,URINE NEGATIVE (NEGATIVE); NITRITE,URINE NEGATIVE (NEGATIVE); PROTEIN,URINE 30 mg/dL (NEGATIVE); URINE SPECIFIC GRAVITY 1.023; UROBILINOGEN,URINE NEGATIVE mg/dL (<2.0)
[2017-03-10] MEDS ORDERED: METOCLOPRAMIDE HCL INJ/PF 10 MG/2 ML SDV IV ONE (08:34)
[2017-03-10] MEDS ORDERED: DEXTROSE 40% GEL 15 GM TUBE PO PRN ×2 (08:38)
[2017-03-10] MEDS ORDERED: GLUCAGON,HUMAN RECOMB 1 MG INJ IM PRN (08:38)
[2017-03-10] MEDS ORDERED: NORMAL SALINE 100 ML with INSULIN REGULAR, HUMAN 100 UNIT IV PRN ×4 (08:38→08:51)
[2017-03-10] MEDS ORDERED: DEXTROSE 50%-WATER 25 GM/50 ML DISP.SYRIN IV PRN ×2 (08:38)
[2017-03-10] MEDS ORDERED: ONDANSETRON HCL INJ/PF 4 MG/2 ML SDV IV PRN (08:46)
[2017-03-10] MEDS ORDERED: NORMAL SALINE 1000 ML 1,000 ML IV PRN ×2 (08:53→14:39)
--- NOTE | 2017-03-10 09:15 | RADIOLOGY REPORT (SQ) ---
EXAM DESCRIPTION: U/S ABDOMEN LIMITED W/O DOP COMPLETED DATE/TIME: 03/10/2017 8:55 am REASON FOR STUDY: evaluate gallbladder COMPARISON: None. TECHNIQUE: Dynamic and static grayscale images acquired of the abdomen and recorded on PACS. Additio nal selected color Doppler and spectral images recorded. LIMITATIONS: None. FINDINGS: PANCREAS: No masses. Visualized pancreatic duct normal caliber. LIVER: No masses. Echotexture normal. LIVER VASCULATURE: Normal directional flow of the main portal vein and hepatic veins. GALLBLADDER: No stones. Normal wall thickness. No pericholecystic fluid. ULTRASOUND-DETECTED ARNETT'S SIGN: Negative. INTRAHEPATIC DUCTS AND COMMON DUCT: CBD and intrahepatic ducts normal caliber. No filling defects. INFERIOR VENA CAVA: Normal flow. AORTA: No aneurysm. RIGHT KIDNEY: Renal anomaly. 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 Possible hydronephr osis. PERITONEAL AND RIGHT PLEURAL SPACE: No ascites or effusions. OTHER: No other significant findings. IMPRESSION: No gallstones. 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 Possible hydronephrosis. TECHNICAL DOCUMENTATION: JOB ID: [id number] [employer]- All Rights Reserved
[2017-03-10] MEDS ORDERED: INSULIN REG, HUMAN 100 UNIT/ML 3 ML VIAL (PYX) ONE (09:17)
[2017-03-10] MEDS: METOPROLOL TARTRATE 25 MG TABLET PO SCH ×2 (09:25→21:17)
[2017-03-10] MEDS ORDERED: NICOTINE 21 MG/24 HR PATCH.TD24 TD PRN (09:35)
[2017-03-10] MEDS ORDERED: ACETAMINOPHEN 650 MG SUPP.RECT PR PRN (09:36)
[2017-03-10] MEDS ORDERED: KETOROLAC TROMETHAMINE INJ/PF 30 MG/1 ML SDV IV PRN (09:36)
--- NOTE | 2017-03-10 09:37 | EKG REPORT ---
SEVERITY:- ABNORMAL ECG - SINUS RHYTHM LEFT ATRIAL ABNORMALITY : Confirmed by: Lara Palacios 10-Mar-2017 09:36:51
[2017-03-10] MEDS: LACTOBACILLUS ACIDOPHILUS 250 MG TAB PO SCH ×2 (10:00→17:42)
[2017-03-10] MEDS ORDERED: SCOPOLAMINE HYDROBROMIDE 1.5 MG PATCH.TD72 TD ONE (10:00)
--- NOTE | 2017-03-10 10:28 | HISTORY AND PHYSICAL E ---
History and Physical NAME: HEATHER CORLEY : 1970 AGE: 47Y ADMITTED: 03/10/2017 ROOM: ED02 PRIMARY CARE PROVIDER: In [place]. CHIEF COMPLAINT: Nausea and vomiting. HISTORY OF PRESENT ILLNESS: The patient is a 47-year-old male with a past medical history of poorly controlled diabetes mellitus type 1 with multiple admissions for DKA. The patient presented to the emergency department with a chief complaint of nausea and vomiting as well as diarrhea. The patient was admitted to the hospitalist service on 03/07/17 and was discharged on 03/08/17 due to DKA. The patient's labs did improve; however, according to the patient's who is present at bedside, the patient himself symptoms never improved and he was discharged and continued to have nausea and vomiting which prompted him to come back to the emergency department for evaluation. The patient is apparently out of town and has been camping on vacation. The patient is originally from [place]. Upon presentation to the emergency department the patient was found to have a normal white count but a pH by VBG was 7.27, bicarbonate was 14.4. Upon chemistry panel his carbon dioxide was 14, his glucose 370, and the patient did have a gap of 23, mildly elevated bilirubin which the patient did have abdominal ultrasound which did not reveal any gallstones and the patient was found to be hypertensive and the patient was treated with 2 L of fluid and was referred to the hospitalist for admission and management. PAST MEDICAL HISTORY: 1. Diabetes mellitus type 1, poorly controlled. 2. Migraines. 3. Gastritis. 4. Tobacco dependency. 5. Gastroparesis. PAST SURGICAL HISTORY: Negative. ALLERGIES: No known drug allergies. HOME MEDICATIONS: 1. Lantus 50 units subcutaneous q.a.m. 2. Lantus 55 units subcutaneous every hour of sleep. 3. Humalog sliding scale coverage before meals and at bedtime. 4. Lisinopril 5 mg p.o. daily. 5. Reglan 10 mg p.o. q.i.d. 6. Zofran ODT 1-2 tablets p.o. q.4 h. p.r.n. 7. Protonix 40 mg p.o. q.a.m. 8. Lyrica 75 mg p.o. q.8 h. 9. Zoloft 100 mg p.o. daily. SOCIAL HISTORY: The patient currently resides in [place]. He is here camping; however, it does sound as though they are traveling around to different areas. The patient is . His , Malou, is his surrogate decision maker. She can be reached at [phone]. The patient is a smoker; he smokes about a pack a day which he has for 30 years. Denies any alcohol abuse. The patient's tox screen is positive for marijuana, denies any other illicit drug use. FAMILY MEDICAL HISTORY: Noncontributory. The patient has no family history of coronary artery disease or GI disorders. The patient does have children who are healthy as well as siblings who are healthy. The patient does have an element of estrangement from his family. REVIEW OF SYSTEMS: CONSTITUTIONAL: The patient denies any fevers or chills, dizziness or weakness but positive for loss of appetite. HEENT: Denies any visual changes, does admit to headaches. No ear pain or throat pain, no nasal drainage. CARDIOVASCULAR: Denies any chest pain, dyspnea, no edema, orthopnea or palpitations. RESPIRATORY: Denies any cough, hemoptysis or dyspnea. GASTROINTESTINAL: The patient denies any abdominal pain, hematemesis, melena, hematochezia. Positive for nausea, vomiting and diarrhea. GENITOURINARY: Denies any hematuria, pyuria or dysuria. MUSCULOSKELETAL: Denies any acute on chronic joint pains, does have neuropathies. INTEGUMENTARY: Denies any diaphoresis, rash, bruising, itching. NEUROLOGIC: Denies any confusion, dizziness, no loss of consciousness. HEMATOLOGICAL: Denies any easy bleeding or easy bruising. ENDOCRINE: Denies any recent weight changes. Admits to polydipsia and polyuria. PSYCHIATRIC: Denies any suicidal or homicidal ideations. The rest of the review of the other organ systems is negative. PHYSICAL EXAMINATION: GENERAL: On examination, the patient is a well-developed, reasonably nourished, frail-appearing 47-year-old male who is sleepy due to medications but is alert and oriented to person, place, time and situation. He is verbal and conversational and does not appear to be in any acute distress. VITAL SIGNS: Temperature 97.6, pulse 94, respirations 12, blood pressure 170/101, oxygen saturation is 100% on room air. SKIN: Warm and dry. No rash. He is not diaphoretic. No wounds. HEENT: Pupils are equal, round, and reactive to light and accommodation. Conjunctivae is pink. There is no JVP. Trachea midline. NECK: Supple. No palpable lymphadenopathy or thyromegaly. CARDIOVASCULAR: Heart is regular. There is no murmur or rub. CHEST: Clear, symmetrical and unlabored. ABDOMEN: Soft, nontender, nondistended. Bowel sounds are present. No palpable organomegaly. BACK: No CVA tenderness or sacral edema. EXTREMITIES: No clubbing, cyanosis or edema. PSYCHIATRIC: Appropriate affect. Pleasant mood. NEUROLOGIC: Cranial nerves II-XII are grossly intact. DIAGNOSTICS: Labs are as follows: Hematology obtained on 03/10/2017: WBC 5.9, hemoglobin 14.0, hematocrit 42.6, platelet count is 327,000. Chemistry obtained on 03/10/2017: Sodium 133, potassium 3.8, chloride 97, carbon dioxide 14, BUN 23, creatinine 1.67, glucose 370, calcium 9.6, bilirubin 1.9, direct bilirubin 0.4, AST 26, ALT 43, alk phos 149, total protein 7.3, albumin 4.6. IMPRESSION AND PLAN: 1. Acute gastroenteritis. Most likely viral process although may be related to just gastroparesis. Will start the patient on antiemetics, aggressively hydrate. Will obtain stool studies and follow. 2. Diabetes mellitus type 1 with diabetic ketoacidosis. This is secondary to #1 or # 1 could contribute to this. Regardless, will aggressively hydrate, place patient on insulin drip, will repeat chemistries and follow appropriate protocol. 3. Tobacco dependence. Spent 3 minutes discussing smoking cessation education. The patient declines any pharmacological intervention at this time. 4. Hypertension. The patient has been unable to tolerate his blood pressure medications. Will start low dose, add p.r.n. IV medications and follow. 5. Elevated bilirubin. The patient's ultrasound was not remarkable for any ductal issue. Will add on lipase and follow this. 6. DVT PROPHYLAXIS. Will start the patient on Lovenox. DISPOSITION: The patient is a FULL CODE. Pending patient's symptomatology and diagnostic findings, will evaluate in the a.m. Will admit the patient to inpatient IMCU, as the patient's expected length of stay will surpass 2 midnights given his need for IV insulin drip and IV fluid resuscitation. Time spent on this admission including assessment and plan, physical examination, patient education, family meeting, review of previous records is 40 minutes. DICTATING PHYSICIAN: ADOLFO ROSADO NP [id number] PHY#: [id number] ID: [id number] JOB#: [id number] ACCT: [id number] cc:DEMETRA CALDERON M.D., MICHAEL NP >
[2017-03-10] MEDS ORDERED: DEXTROSE 5%-NORMAL SALINE 1,000 ML IV PRN (11:04)
[2017-03-10] MEDS ORDERED: METOCLOPRAMIDE HCL INJ/PF 10 MG/2 ML SDV IV SCH ×2 (12:00)
[2017-03-10 12:47] LABS: ANION GAP 18 (5-19); BLOOD UREA NITROGEN 12 mg/dL (7-20); CARBON DIOXIDE 12 mmol/L (22-30); CHLORIDE 105 mmol/L (98-107); CREATININE RESULT 0.62 mg/dL (0.52-1.25); GLUCOSE 201 mg/dL (75-110); POTASSIUM 4.2 mmol/L (3.6-5.0)
[2017-03-10] MEDS ORDERED: INSULIN GLARGINE,HUM.REC.ANLOG 1,000 UNIT/10 ML UNIT SUBCUT ONE (14:53)
[2017-03-10] MEDS ORDERED: INSULIN GLARGINE,HUM.REC.ANLOG 300 UNIT/3 ML INSULN.PEN SUBCUT ONE (15:30)
[2017-03-10 18:34] LABS: ANION GAP 12 (5-19); BLOOD UREA NITROGEN 12 mg/dL (7-20); CALCIUM 8.6 mg/dL (8.4-10.2); CARBON DIOXIDE 20 mmol/L (22-30); CHLORIDE 106 mmol/L (98-107); CREATININE RESULT 0.59 mg/dL (0.52-1.25); GLUCOSE 62 mg/dL (75-110); POTASSIUM 3.9 mmol/L (3.6-5.0); SODIUM 137.8 mmol/L (137-145)
[2017-03-10] MEDS: METOCLOPRAMIDE HCL 10 MG TABLET PO SCH (21:18)
[2017-03-10] MEDS: PREGABALIN 75 MG CAPSULE PO SCH (21:18)
[2017-03-10] MEDS: INSULIN GLARGINE,HUM.REC.ANLOG 300 UNIT/3 ML INSULN.PEN SUBCUT SCH (21:23)
[2017-03-11 05:33] LABS: ANION GAP 11 (5-19); BLOOD UREA NITROGEN 10 mg/dL (7-20); CALCIUM 8.8 mg/dL (8.4-10.2); CARBON DIOXIDE 21 mmol/L (22-30); CHLORIDE 106 mmol/L (98-107); CREATININE RESULT 0.54 mg/dL (0.52-1.25); MAGNESIUM 1.9 mg/dL (1.6-2.3); POTASSIUM 3.2 mmol/L (3.6-5.0); SODIUM 138.1 mmol/L (137-145)
[2017-03-11 06:01] LABS: GLUCOSE 40 mg/dL (75-110)
[2017-03-11] MEDS: PREGABALIN 75 MG CAPSULE PO SCH ×2 (06:09→14:00)
[2017-03-11] MEDS ORDERED: POTASSI CL 20 MEQ/D5-1/2NS 1L 1,000 ML IV ONE (06:14)
[2017-03-11] MEDS ORDERED: POTASSIUM CHLORIDE 20 MEQ/15 ML UDCUP PO SCH (06:15)
[2017-03-11] MEDS ORDERED: LANSOPRAZOLE 30 MG TAB.RAP.DR PO SCH (08:00)
[2017-03-11] MEDS: METOCLOPRAMIDE HCL 10 MG TABLET PO SCH ×2 (08:12→12:27)
[2017-03-11] MEDS: POTASSIUM CHLORIDE 20 MEQ/15 ML UDCUP PO SCH ×2 (09:53→12:27)
[2017-03-11] MEDS: LACTOBACILLUS ACIDOPHILUS 250 MG TAB PO SCH (09:56)
[2017-03-11] MEDS: INSULIN GLARGINE,HUM.REC.ANLOG 300 UNIT/3 ML INSULN.PEN SUBCUT SCH (09:59)
[2017-03-11] MEDS: METOPROLOL TARTRATE 25 MG TABLET PO SCH (09:59)
[2017-03-11] MEDS ORDERED: LISINOPRIL 5 MG TABLET PO SCH (10:00)
[2017-03-11] MEDS ORDERED: SERTRALINE HCL 50 MG TABLET PO SCH (10:00)
[2017-03-11 13:44] VITALS: BP 121/68
--- NOTE | 2017-03-13 16:04 | DISCHARGE SUMMARY E ---
Discharge Summary NAME: HEATHER CORLEY : 1970 AGE: 47Y ADMITTED: 03/10/2017 DISCHARGED: 03/11/2017 CODE STATUS: FULL CODE. PRIMARY CARE PROVIDER: In [place]. DISCHARGE DIAGNOSES: 1. Diabetic ketoacidosis. 2. Noncompliance. 3. Nausea and vomiting, most likely secondary to #1. 4. Migraines. 5. Gastritis. 6. Tobacco dependency. 7. Diabetic gastroparesis. DISCHARGE MEDICATIONS: Include: 1. Zoloft 100 mg p.o. daily. 2. Lyrica 75 mg p.o. q. 8 hours. 3. Protonix 40 mg p.o. daily. 4. Zofran 4 mg sublingual q. 4 hours p.r.n. 5. Reglan 10 mg p.o. with each meal. 6. Lisinopril 5 mg p.o. daily. 7. Humalog sliding-scale coverage. 8. Humalog 15 units subcutaneously with meals. 9. Lantus 45 units subcutaneously q. hour of sleep. 10. Lantus 45 units subcutaneously q. morning. DIET: Diabetic. ACTIVITY: As tolerated. HISTORY OF PRESENT ILLNESS: The patient is a 47-year-old male with a past medical history of poorly-controlled diabetes mellitus type 1 and multiple admissions for DKA. The patient presented to the emergency department with a chief complaint of nausea and vomiting. The patient had been admitted to the hospitalist service on 03/07/2017 through 03/08/2017 due to DKA. The patient's labs improved. However, according to the patient's , who was present at bedside. The patient's symptoms never actually improved and he continued to have nausea and vomiting, which brought him back to the emergency department for evaluation. Apparently, the patient had been out of town, camping on vacation, originally from [place]. Upon presentation to the emergency department, the patient was found to have a normal white count, but pH of 7.26, bicarbonate of 14. Upon chemistry panel, the patient's carbon dioxide was 14, his glucose was 370, and the patient had a gap of 23, mildly elevated bilirubin. Ultrasound was unremarkable and the patient was referred to the hospitalist for admission and management. HOSPITAL COURSE: The patient was admitted to [facility] The patient was aggressively hydrated and was placed on an insulin drip. The patient's blood glucose improved. The patient's gap did close and the patient's symptoms of nausea and vomiting completely resolved. At the day of discharge, the patient was at the sink washing up and was ready to go. The patient denied all symptoms and is ready for discharge. DIAGNOSTIC DATA: Lab values are as follows: Hematology obtained on 03/10/2017: WBC's are 5.9, hemoglobin is 14.0, hematocrit is 42.6, platelet count is 327,000. Coagulation obtained on 03/10/2017: PT is 12.1, INR is 0.83. A venous blood gas obtained on 03/10/2017 showed a pH of 7.27, pCO2 of 32.3, bicarb is 14. Chemistries obtained on 03/11/2017: Sodium is 138, potassium 3.2 (this has been replaced), chloride is 106, carbon dioxide 21, BUN 10, creatinine is 0.54, glucose 135. Lactic acid 0.8. Calcium 8.8, magnesium is 1.9. Total bilirubin is 1.9, AST is 26, ALT is 43, alk phos 149, total protein 7.3, albumin 4.6, lipase is 26.5. OTHER BODY SOURCES: Stool studies were negative. Blood cultures obtained on 03/10/2017: Negative. Chest x-ray obtained on 03/10/2017 reveals no acute radiographic finding of the chest. EKG obtained on 03/10/2017 reveals sinus rhythm. Abdominal ultrasound obtained on 03/10/2017 reveals no gallstones. PHYSICAL EXAMINATION: GENERAL: On examination, the patient is a well-developed 47-year-old male who is awake, alert, and oriented to person, place, and situation. He is verbal and conversational, ambulatory. He does not appear to be in any acute distress. VITAL SIGNS: Temperature is 97.9, pulse 65, respirations 19, blood pressure is 114/69, oxygen saturation is 100% on room air. SKIN: Warm and dry. No rash. He is not diaphoretic. HEENT: Pupils equal, round, and reactive to light and accommodation. Conjunctivae pink. NECK: No JVD. CARDIOVASCULAR SYSTEM: Heart is regular. There is no murmur or rub. CHEST: Clear, symmetrical, unlabored. ABDOMEN: Soft, nontender, and nondistended. BACK: No CVA tenderness or sacral edema. EXTREMITIES: No clubbing, cyanosis, edema. PSYCHIATRIC: Appropriate affect, pleasant mood. DISCHARGE PLAN: The patient is advised to follow up with primary care provider within 1 week for hospital followup. TIME SPENT: Time spent on this discharge, including assessment, plan, physical examination, and patient education is 25 minutes. DICTATING PHYSICIAN: ADOLFO ROSADO NP [id number] PHY#: [id number] ID: [id number] JOB#: [id number] ACCT: [id number] cc:Gigi JUAN NP >
== END 2017-03-11 14:16 | disposition home or self-care (01) | DRG 639 ==
LOC: ER 06:23 → UNDOADMIN 08:46 → EH 08:46 → 3W 12:55
PROVIDERS: ADMIT Family Medicine; ATTEND Family Medicine
DX: E10.10 Type 1 diabetes mellitus with ketoacidosis without coma (principal); Z79.4 Long term (current) use of insulin; G43.909 Migraine, unspecified, not intractable, without status migrainosus; K29.70 Gastritis, unspecified, without bleeding; K31.84 Gastroparesis; Z79.899 Other long term (current) drug therapy; F17.210 Nicotine dependence, cigarettes, uncomplicated
CPT/HCPCS: 36415; 71010; 76705; 80048; 80053; 81001; 82272; 82803; 82962; 83605; 83690; 83735; 85025; 85610; 87040; 87045; 87086; 87205; 87493; 89055; 93005; 93010; 96361; 96374; 96375; 99285; J1815; J1885; J2405; J2765; J3480; J3490; J7030; S0164